=== PATIENT | male | born 1995 ===

== ENCOUNTER 2021-10-28 16:00 | Outpatient (CLI) | payer BC | END 2021-10-28 16:01 | disposition home or self-care (01) | LOC: SLEEPLAB 16:00 | PROVIDERS: ATTEND Internal Medicine Pulmonary Disease | DX: G47.30 Sleep apnea, unspecified (principal); G47.61 Periodic limb movement disorder; R53.83 Other fatigue; G31.84 Mild cognitive impairment of uncertain or unknown etiology | CPT/HCPCS: 95800 ==